=== PATIENT | male | born 1985 | race Two or more races ===

== ENCOUNTER 2019-06-15 21:31 | Emergency (ER) | payer BC, OTHER ==
[~2019-06-15] VITALS: Ht 170.2 cm; Wt 147.0 kg
[2019-06-15 23:31] VITALS: BP 120/74
== END 2019-06-15 23:55 | disposition home or self-care (01) ==
LOC: ER 21:31
DX: S43.402A Unspecified sprain of left shoulder joint, initial encounter (principal); S83.8X2A Sprain of other specified parts of left knee, initial encounter; V43.52XA Car driver injured in collision with other type car in traffic accident, initial encounter; Y93.89 Activity, other specified; Y99.8 Other external cause status; Y92.410 Unspecified street and highway as the place of occurrence of the external cause
CPT/HCPCS: 73030; 73562